=== PATIENT | female | born 1945 | race Caucasian/White ===

== ENCOUNTER 2016-02-16 13:37 | Inpatient (IN) | payer OTHER ==
[~2016-02-16] VITALS: Ht 157.5 cm; Wt 64.4 kg
[~2016-02-16 13:37] MED LIST: IBUP-1619 PO
[2016-02-16] MEDS ORDERED: IV NS 0.9% 1,000 ML BAG IV ONE (14:00)
[2016-02-16] MEDS ORDERED: MORPHINE SULFATE INJ 2 MG/ML DISP.SYRIN IV ONE ×3 (14:00→16:30)
[2016-02-16] MEDS ORDERED: ONDANSETRON HCL/PF 4 MG/2 ML VIAL IVP ONE (14:00)
[2016-02-16] MEDS ORDERED: MORPHINE SULFATE INJ 4 MG/ML DISP.SYRIN ONE ×2 (14:13→16:27)
[2016-02-16] MEDS ORDERED: ONDANSETRON HCL/PF 4 MG/2 ML VIAL ONE ×2 (14:13→15:07)
[2016-02-16] MEDS ORDERED: IV SET PRIMARY 1 EA INFUS.SET MC ONE (14:13)
[2016-02-16] MEDS ORDERED: IV NS 0.9% 1,000 ML ONE ×2 (14:13→20:00)
[2016-02-16 14:48] LABS: HEMATOCRIT 45 % (33-45); HEMOGLOBIN 15.2 g/dL (11.5-14.8); MEAN CORPUSCULAR HEMOGLOBIN 30 PG (26.0-33.0); MEAN CORPUSCULAR VOLUME 90 fL (82-100); RED BLOOD CELL COUNT(AUTO) 5.03 MIL/uL (4.0-5.2); WHITE BLOOD COUNT (AUTO) 19.9 K/uL (4.3-11.0)
[2016-02-16 14:49] LABS: BASOPHILS % (AUTO) 0.1 % (0.0-2.0); DIFF TOTAL % 100 %; LYMPHOCYTES % (AUTO) 9.9 % (20.0-44.0); MEAN CORPUSCULAR HGB CONC 34 g/dl (31.0-36.0); MONOCYTES # (AUTO) 1.2 /CMM (0.1-1.30); MONOCYTES % (AUTO) 6.1 % (2.0-12.0); NEUTROPHILS # (AUTO) 16.7 /CMM (1.8-8.9); NEUTROPHILS % (AUTO) 83.9 % (43.0-81.0); PLATELET COUNT (AUTO) 379 /CMM (150-450)
[2016-02-16] MEDS ORDERED: ONDANSETRON HCL/PF - ER 4 MG/2 ML VIAL IV ONE (15:00)
[2016-02-16] MEDS ORDERED: MORPHINE SULFATE INJ 2 MG/ML DISP.SYRIN ONE (15:07)
[2016-02-16 15:09] LABS: ALBUMIN 3.6 g/dL (3.4-5.0); BILIRUBIN,DIRECT 0.1 mg/dL (0.0-0.2); BILIRUBIN,TOTAL 0.6 mg/dL (0.2-1.0); CREATININE 0.7 mg/dL (0.6-1.3); INDIRECT BILIRUBIN 0.5 mg/dL (0.0-1.1); TOTAL PROTEIN, SERUM 7.6 g/dL (6.4-8.2)
[2016-02-16 15:22] LABS: POTASSIUM 2.8 mmol/L (3.5-5.1)
[2016-02-16 15:32] LABS: LACTIC ACID 1.5 mmol/L (0.4-2.0)
[2016-02-16] MEDS ORDERED: CEFAZOLIN 1 GM in IV D5W 50 ML IV ONE (16:30)
[2016-02-16] MEDS ORDERED: IV NS 0.9% 1,000 ML IV PRN (16:43)
[2016-02-16] MEDS ORDERED: Z GUARD REMEDY 2 OZ OINT TP PRN ×2 (17:00→19:15)
[2016-02-16] MEDS ORDERED: ACETAMINOPHEN 325 MG TABLET PO PRN ×2 (17:00→19:15)
[2016-02-16] MEDS ORDERED: ONDANSETRON HCL/PF 4 MG/2 ML VIAL IVP PRN ×2 (17:00→19:15)
[2016-02-16] MEDS ORDERED: MAGNESIUM HYDROXIDE 30 ML UDC PO PRN ×2 (17:00→19:15)
[2016-02-16] MEDS ORDERED: MORPHINE SULFATE INJ 2 MG/ML DISP.SYRIN IV PRN (17:00)
[2016-02-16] MEDS ORDERED: IV SET PRIMARY PUMP SET 1 EA INFUS.SET MC ONE ×2 (17:01→20:01)
[2016-02-16 17:50] LABS: INR 0.93 (0.87-1.13)
[2016-02-16] MEDS ORDERED: PIPERACILLIN /TAZOBACTAM 3.375 G in IV D5W 50 ML IV SCH (18:00)
[2016-02-16 19:00] VITALS: BP 132/65
[2016-02-16] MEDS ORDERED: SECONDARY IV SET 1 EA INFUS.SET MC ONE (20:01)
[2016-02-16] MEDS: IV NS 0.9% 1,000 ML IV PRN (20:10)
[2016-02-16 20:25] VITALS: BP 132/65
[2016-02-16] MEDS ORDERED: LORAZEPAM INJ 2 MG/ML VIAL IV ONE (22:00)
[2016-02-16] MEDS ORDERED: PIPERACILLIN /TAZOBACTAM 3.375 G VIAL IV ONE (22:08)
[2016-02-16] MEDS ORDERED: IV D5W 50 ML IV ONE (22:08)
[2016-02-16] MEDS ORDERED: LORAZEPAM INJ 2 MG/ML VIAL ONE (22:08)
[2016-02-17] MEDS: PIPERACILLIN /TAZOBACTAM 3.375 G in IV D5W 50 ML IV SCH ×5 (00:33→23:32)
[2016-02-17] MEDS ORDERED: IV SET PRIMARY PUMP SET 1 EA INFUS.SET MC ONE ×2 (01:50→20:50)
[2016-02-17] MEDS ORDERED: POTASSIUM CL. PREMIX PERIPHER. 200 ML ONE (01:58)
[2016-02-17] MEDS ORDERED: POTASSIUM CHLORIDE 10 MEQ/50 ML PREMIXED IVPB FOR PERIPHERAL LINE IV ONE (02:00)
[2016-02-17] MEDS: POTASSIUM CL. PREMIX PERIPHER. 50 ML IV SCH ×6 (02:07→16:39)
[2016-02-17] MEDS ORDERED: IV D5W 50 ML IV ONE (04:45)
[2016-02-17] MEDS ORDERED: PIPERACILLIN /TAZOBACTAM 3.375 G VIAL IV ONE (04:45)
[2016-02-17 08:00] VITALS: BP 104/54
[2016-02-17] MEDS: PANTOPRAZOLE 40 MG VIAL IV SCH (08:45)
[2016-02-17] MEDS ORDERED: PANTOPRAZOLE 40 MG VIAL IV SCH (09:00)
[2016-02-17] MEDS: IV NS 0.9% 1,000 ML IV PRN (10:01)
[2016-02-17] MEDS: MORPHINE SULFATE INJ 2 MG/ML DISP.SYRIN IV PRN ×2 (10:08→21:01)
[2016-02-17 10:25] LABS: BASOPHILS % (AUTO) 0.3 % (0.0-2.0); DIFF TOTAL % 100 %; EOSINOPHILS # (AUTO) 0.1 /CMM (0.0-0.7); EOSINOPHILS % (AUTO) 0.7 % (0.0-6.0); HEMATOCRIT 38 % (33-45); HEMOGLOBIN 12.9 g/dL (11.5-14.8); LYMPHOCYTES # (AUTO) 3.8 /CMM (0.8-4.8); LYMPHOCYTES % (AUTO) 27.6 % (20.0-44.0); MEAN CORPUSCULAR HEMOGLOBIN 31 PG (26.0-33.0); MEAN CORPUSCULAR HGB CONC 34 g/dl (31.0-36.0); MEAN CORPUSCULAR VOLUME 91 fL (82-100); MONOCYTES # (AUTO) 1.1 /CMM (0.1-1.30); MONOCYTES % (AUTO) 8.1 % (2.0-12.0); NEUTROPHILS # (AUTO) 8.8 /CMM (1.8-8.9); NEUTROPHILS % (AUTO) 63.3 % (43.0-81.0); PLATELET COUNT (AUTO) 298 /CMM (150-450); RED BLOOD CELL COUNT(AUTO) 4.18 MIL/uL (4.0-5.2); WHITE BLOOD COUNT (AUTO) 13.9 K/uL (4.3-11.0)
[2016-02-17 10:34] LABS: CALCIUM, SERUM 7.8 mg/dL (8.5-10.1); CREATININE 0.8 mg/dL (0.6-1.3); POTASSIUM 3.3 mmol/L (3.5-5.1)
[2016-02-17 10:44] LABS: INR 0.97 (0.87-1.13); PROTHROMBIN TIME 10.5 SECS (9.5-12.7)
[2016-02-17] MEDS ORDERED: TPN/PPN PER PHARMACY XX PRN (14:30)
[2016-02-17] MEDS ORDERED: SECONDARY IV SET 1 EA INFUS.SET MC ONE (15:23)
[2016-02-17] MEDS ORDERED: IV D5W 1,000 ML IV PRN (18:30)
[2016-02-17] MEDS ORDERED: INSULIN REGULAR, HUMAN 100 UNIT/ML 3 ML VIAL SQ PRN (19:30)
[2016-02-17] MEDS ORDERED: DEXTROSE 50%-WATER 50 ML DISP.SYRIN IV PRN (19:30)
[2016-02-17] MEDS ORDERED: FEE TPN 1 MIN EA MC ONE (19:39)
[2016-02-17 20:00] VITALS: BP 130/79
[2016-02-17] MEDS ORDERED: TPN BAG #1 IV SCH ×5 (20:00)
[2016-02-17] MEDS ORDERED: TPN BAG #1 IV PRN ×10 (20:00)
[2016-02-17] MEDS ORDERED: FILTER SET SAVER IV SET 1 EA INFUS.SET MC ONE (20:50)
[2016-02-17] MEDS: IV D5W 1,000 ML IV PRN (21:02)
[2016-02-17] MEDS ORDERED: LORAZEPAM INJ 2 MG/ML VIAL ONE (23:25)
[2016-02-17] MEDS: BLOOD SUGAR DIAGNOSTIC 1 EACH STRIP IN SCH (23:32)
[2016-02-17] MEDS: LORAZEPAM INJ 2 MG/ML VIAL IV PRN (23:32)
[2016-02-18] MEDS: MORPHINE SULFATE INJ 2 MG/ML DISP.SYRIN IV PRN ×3 (03:46→18:52)
[2016-02-18] MEDS: PIPERACILLIN /TAZOBACTAM 3.375 G in IV D5W 50 ML IV SCH ×3 (05:58→17:23)
[2016-02-18] MEDS: BLOOD SUGAR DIAGNOSTIC 1 EACH STRIP IN SCH ×3 (05:58→17:23)
[2016-02-18 07:25] LABS: BASOPHILS # (AUTO) 0.1 /CMM (0.0-0.2); BASOPHILS % (AUTO) 0.5 % (0.0-2.0); DIFF TOTAL % 100 %; EOSINOPHILS # (AUTO) 0.3 /CMM (0.0-0.7); EOSINOPHILS % (AUTO) 2.2 % (0.0-6.0); HEMATOCRIT 40 % (33-45); HEMOGLOBIN 13.3 g/dL (11.5-14.8); LYMPHOCYTES # (AUTO) 3.6 /CMM (0.8-4.8); LYMPHOCYTES % (AUTO) 27.7 % (20.0-44.0); MEAN CORPUSCULAR HEMOGLOBIN 31 PG (26.0-33.0); MEAN CORPUSCULAR HGB CONC 34 g/dl (31.0-36.0); MEAN CORPUSCULAR VOLUME 91 fL (82-100); MONOCYTES # (AUTO) 0.9 /CMM (0.1-1.30); NEUTROPHILS # (AUTO) 8.1 /CMM (1.8-8.9); NEUTROPHILS % (AUTO) 62.6 % (43.0-81.0); PLATELET COUNT (AUTO) 285 /CMM (150-450); RED BLOOD CELL COUNT(AUTO) 4.36 MIL/uL (4.0-5.2); WHITE BLOOD COUNT (AUTO) 12.9 K/uL (4.3-11.0)
[2016-02-18 07:41] LABS: CALCIUM, SERUM 7.8 mg/dL (8.5-10.1); CREATININE 0.7 mg/dL (0.6-1.3); POTASSIUM 3.3 mmol/L (3.5-5.1)
[2016-02-18 08:00] VITALS: BP 111/72
[2016-02-18] MEDS: PANTOPRAZOLE 40 MG VIAL IV SCH (08:24)
[2016-02-18 09:43] VITALS: BP 111/72
[2016-02-18] MEDS ORDERED: TPN BAG #3 IV PRN ×11 (10:00→12:03)
[2016-02-18] MEDS ORDERED: SUCCINYLCHOLINE CHLORIDE 20 MG/ML VIAL ONE (10:46)
[2016-02-18] MEDS ORDERED: TPN BAG #2 IV PRN ×13 (12:00→12:01)
[2016-02-18 16:00] VITALS: BP 95/58
[2016-02-18] MEDS ORDERED: TPN BAG#3 IV PRN ×7 (16:30)
[2016-02-18 20:00] VITALS: BP 103/60
[2016-02-19] MEDS: LORAZEPAM INJ 2 MG/ML VIAL IV PRN ×2 (00:16→23:13)
[2016-02-19] MEDS: PIPERACILLIN /TAZOBACTAM 3.375 G in IV D5W 50 ML IV SCH ×5 (00:16→23:13)
[2016-02-19] MEDS: BLOOD SUGAR DIAGNOSTIC 1 EACH STRIP IN SCH ×5 (00:16→23:13)
[2016-02-19 09:42] LABS: CALCIUM, SERUM 8.3 mg/dL (8.5-10.1); CREATININE 0.8 mg/dL (0.6-1.3); PHOSPHORUS 2.2 mg/dL (2.5-4.9); POTASSIUM 3.2 mmol/L (3.5-5.1)
[2016-02-19] MEDS ORDERED: TPN BAG #3 IV PRN ×17 (10:15→10:19)
[2016-02-19] MEDS ORDERED: TPN BAG #4 IV PRN ×8 (10:30)
[2016-02-19] MEDS: PANTOPRAZOLE 40 MG VIAL IV SCH (11:07)
[2016-02-19] MEDS ORDERED: NEUTRA PHOS 1 POWD.PACKET PO ONE (16:00)
[2016-02-19] MEDS: SUCRALFATE 1 G/10 ML UDC PO SCH ×2 (16:08→21:09)
[2016-02-19 20:00] VITALS: BP 91/52
[2016-02-19] MEDS: PANTOPRAZOLE 40 MG TABLET.DR PO SCH (21:09)
[2016-02-19] MEDS ORDERED: SECONDARY IV SET 1 EA INFUS.SET MC ONE (23:05)
[2016-02-19] MEDS ORDERED: IV NS 0.9% 250 ML IV ONE (23:16)
[2016-02-19] MEDS ORDERED: IV SET PRIMARY PUMP SET 1 EA INFUS.SET MC ONE (23:17)
[2016-02-19] MEDS: IV D5W 1,000 ML IV PRN (23:23)
[2016-02-20] MEDS: BLOOD SUGAR DIAGNOSTIC 1 EACH STRIP IN SCH (05:18)
[2016-02-20] MEDS: PIPERACILLIN /TAZOBACTAM 3.375 G in IV D5W 50 ML IV SCH ×2 (05:18→11:02)
[2016-02-20 08:00] VITALS: BP 98/64
[2016-02-20] MEDS: PANTOPRAZOLE 40 MG TABLET.DR PO SCH (08:26)
[2016-02-20] MEDS: SUCRALFATE 1 G/10 ML UDC PO SCH ×2 (08:26→11:02)
[2016-02-20 09:28] LABS: BASOPHILS % (AUTO) 0.4 % (0.0-2.0); DIFF TOTAL % 100 %; EOSINOPHILS # (AUTO) 0.5 /CMM (0.0-0.7); EOSINOPHILS % (AUTO) 4.2 % (0.0-6.0); HEMATOCRIT 37 % (33-45); HEMOGLOBIN 12.5 g/dL (11.5-14.8); LYMPHOCYTES # (AUTO) 3.1 /CMM (0.8-4.8); LYMPHOCYTES % (AUTO) 26.8 % (20.0-44.0); MEAN CORPUSCULAR HEMOGLOBIN 31 PG (26.0-33.0); MEAN CORPUSCULAR HGB CONC 34 g/dl (31.0-36.0); MEAN CORPUSCULAR VOLUME 91 fL (82-100); MONOCYTES # (AUTO) 0.7 /CMM (0.1-1.30); MONOCYTES % (AUTO) 6.5 % (2.0-12.0); NEUTROPHILS # (AUTO) 7.1 /CMM (1.8-8.9); NEUTROPHILS % (AUTO) 62.1 % (43.0-81.0); PLATELET COUNT (AUTO) 295 /CMM (150-450); RED BLOOD CELL COUNT(AUTO) 4.08 MIL/uL (4.0-5.2); WHITE BLOOD COUNT (AUTO) 11.4 K/uL (4.3-11.0)
[2016-02-20 09:59] LABS: CALCIUM, SERUM 8.6 mg/dL (8.5-10.1); CREATININE 0.8 mg/dL (0.6-1.3); PHOSPHORUS 2.6 mg/dL (2.5-4.9); POTASSIUM 3.3 mmol/L (3.5-5.1)
[2016-02-20 10:50] VITALS: BP 98/64
[2016-02-20] MEDS ORDERED: SECONDARY IV SET 1 EA INFUS.SET MC ONE (10:54)
[2016-02-20] MEDS ORDERED: PANT40TA2 PO (13:48)
[2016-02-20] MEDS ORDERED: SUCR1ORA6 PO (13:48)
[2016-02-20] MEDS ORDERED: NA PHOS,M-B/NA PHOS,DI-BA 1 EA ENEMA RC ONE (14:00)
[2016-02-20] MEDS ORDERED: NA PHOS,M-B/NA PHOS,DI-BA 1 EA ENEMA RC PRN (15:00)
[2016-02-20 16:00] VITALS: BP 98/68
[2016-02-20] MEDS ORDERED: LACTULOSE 10 G/15 ML UDC (PYXIS) PO PRN (16:00)
[2016-02-20] MEDS ORDERED: MINERAL OIL 133 ML (PYXIS) 1 EA ENEMA RC ONE (16:00)
== END 2016-02-20 17:00 | disposition home or self-care (01) | DRG 382 ==
LOC: ER 13:38 → MED 19:08
PROVIDERS: ADMIT Internal Medicine; ATTEND Internal Medicine
PROC: 02HV33Z Insertion of Infusion Device into Superior Vena Cava, Percutaneous Approach (ICD-10-PCS; 2016-02-17)
PROC: B548ZZA Ultrasonography of Superior Vena Cava, Guidance (ICD-10-PCS; 2016-02-17)
PROC: 0DB78ZX Excision of Stomach, Pylorus, Via Natural or Artificial Opening Endoscopic, Diagnostic (ICD-10-PCS; 2016-02-18)
PROC: 0DB58ZX Excision of Esophagus, Via Natural or Artificial Opening Endoscopic, Diagnostic (ICD-10-PCS; 2016-02-18)
PROC: 0D778ZZ Dilation of Stomach, Pylorus, Via Natural or Artificial Opening Endoscopic (ICD-10-PCS; principal; 2016-02-18 10:30)
DX: K31.1 Adult hypertrophic pyloric stenosis (principal); K27.9 Peptic ulcer, site unspecified, unspecified as acute or chronic, without hemorrhage or perforation; E87.6 Hypokalemia; E03.9 Hypothyroidism, unspecified; E78.5 Hyperlipidemia, unspecified; D72.829 Elevated white blood cell count, unspecified; K21.9 Gastro-esophageal reflux disease without esophagitis; M19.90 Unspecified osteoarthritis, unspecified site
CPT/HCPCS: 36415; 71010-TC; 74000-TC; 80048-TC; 80076-TC; 82962-TC; 83605-TC; 83690-TC; 83735-TC; 84100-TC; 84478-TC; 85025-TC; 85610-TC; 85730-TC; 86850-TC; 87040-TC; 87081-TC; 88305-TC; 88313-TC; 88342; 97001-TC; A4606; C1726; C1751; C9113; J0330; J0690; J1815; J2060; J2270; J2405; J2543; J3475; J3480; J3490; J7030; J7050; J7060; J7070; Z7610

== ENCOUNTER 2020-01-20 21:44 | Emergency (ER) | payer MEDICARE, OTHER ==
[~2020-01-20] VITALS: Ht 160 cm; Wt 72.6 kg
[2020-01-20 21:44] VITALS: BP 128/91
[~2020-01-20 21:44] MED LIST changes: -IBUP-1619 PO; +PANT40TA2 PO; +SUCR1ORA6 PO
--- NOTE | 2020-01-20 21:54 | NUR ---
PATIENT CAME TO ER BED 2 WITH FRIEND C/O PAIN IN THE RIGHT UPPER BACK SINCE 1729. PATIENT STATES THAT SHE HAD BURGER RAMAN AND ASPIRATED ON THE BURGER. PATIENT STATES, "IT FEELS LIKE MARBLES ON MY BACK" PATIENT HAS BEEN COUGHING AND HASN'T BEEN ABLE TO COUGH OUT THE FOOD. PATIENT IS AAOX4. NO SOB .BREATHING EVENLY AND UNLABORED ON ROOM AIR AT 95%. CONNECTED TO THE MONITOR.
[2020-01-20] MEDS ORDERED: LIDOCAINE VISCOUS 2% UD 15 ML UDC MM ONE (22:30)
[2020-01-20] MEDS ORDERED: MAG HYDROX/AL HYDROX/SIMETH 30 ML UDC PO ONE (22:30)
[2020-01-20] MEDS ORDERED: LIDOCAINE VISCOUS 2% UD 15 ML UDC ONE (22:31)
[2020-01-20] MEDS ORDERED: MAG HYDROX/AL HYDROX/SIMETH 30 ML UDC ONE (22:31)
--- NOTE | 2020-01-20 23:13 | NUR ---
PT RESTING COMFORTABLY. PROVIDED WITH MACK.
--- NOTE | 2020-01-20 23:35 | NUR ---
Patient discharged to home in stable condition. Written and verbal after care instructions given. Patient verbalizes understanding of instruction.
== END 2020-01-20 23:36 | disposition home or self-care (01) ==
LOC: ER 21:47
DX: R05 Cough (principal); M54.6 Pain in thoracic spine; R11.10 Vomiting, unspecified; E03.9 Hypothyroidism, unspecified; Z60.2 Problems related to living alone; Z79.899 Other long term (current) drug therapy
CPT/HCPCS: 71046